=== PATIENT | male | born 1975 | race Caucasian/White ===

== ENCOUNTER 2019-11-15 13:44 | Emergency (ER) | payer OTHER ==
[~2019-11-15] VITALS: Ht 172.7 cm; Wt 79.4 kg
[2019-11-15] MEDS ORDERED: WATER PILL (13:51)
[2019-11-15] MEDS ORDERED: PROAIR HFA8.5 GM INH (13:51)
[2019-11-15] MEDS ORDERED: IBUPROFEN 800800 M1 PO (15:11)
[2019-11-15] MEDS ORDERED: NORCO 5-325 TA1 EAC2 PO (15:11)
[2019-11-15 15:22] VITALS: BP 122/68
== END 2019-11-15 15:23 | disposition home or self-care (01) ==
LOC: M.ERS 13:44
DX: S62.316A Displaced fracture of base of fifth metacarpal bone, right hand, initial encounter for closed fracture (principal); J45.909 Unspecified asthma, uncomplicated; F17.210 Nicotine dependence, cigarettes, uncomplicated; W22.8XXA Striking against or struck by other objects, initial encounter; Y93.89 Activity, other specified; Y92.89 Other specified places as the place of occurrence of the external cause; Y99.8 Other external cause status